=== PATIENT | female | born 1980 | race Caucasian/White ===

== ENCOUNTER → 2017-02-20 | Outpatient (CLI) | payer OTHER ==
[~2017-02-20] MED LIST: ALBUTEROL17 GM INH; ATIVAN PO; BIRTH CONTROL PILL PO; CYMBALTA PO; DEPAKOTE ER PO; DEPO-PROVER150 MG/M1 IM; DICLOFENAC PO; DOXYCYCLINE PO; FLEXERIL PO; FLEXERIL10 MG PO; K-DUR20 ME1 PO; MACROBID100 M1 PO; NO MEDICATIONS; PREDNISONE PO
--- NOTE | ~2017-02-20 | US77 ---
[facility] A Service of [facility] RADIOLOGY TEXT RESULTS PATIENT: STACI CERDA LOCATION: [facility] : 84 UNIT #: [id number] AGE: [address]: Nick Benton MD SEX: F ORDER DR: [id number] [facility]. [place], [place] [address] [id number] O MR#: [id number] Acc #: [id number] NAME: STACI CERDA. : 1980 SEX: F STUDY DATE/TIME: 02/20/2017 15:33 UNIT: [facility] ROOM: STUDY DESCRIPTION: US Kidney Bilateral Complete Attending Physician: Nick Benton M.D. Referring Physician: Nick Benton M.D. Ordering Physician: Nick Benton M.D. Primary Care Physician: John Tabor M.D. MEDICAL IMAGING REPORT This report is preliminary unless electronic signature is present EXAM Renal ultrasound INDICATIONS Renal calculus, patient underwent a lithotripsy [address] of the abdomen and pelvis performed November 06, 2013 did show bilateral renal calculi. TECHNIQUE Piña-scale and color Doppler sonographic images were obtained through the kidneys and bladder. FINDINGS Patient does have at least one renal stone identified within the inferior pole of the right kidney; however, there is no evidence of hydronephrosis and no solid or cystic renal masses are seen on either side. No definite stones are seen on the left. Patient's bladder appears unremarkable. IMPRESSION Nonobstructing stone identified within the inferior pole of the right kidney. No other abnormality identified. Dictated by... Mirela Asencio M.D. THIS IS AN ELECTRONICALLY VERIFIED REPORT Mirela Asencio M.D. at 02/21/2017 4:46 PM AFF/psc TD: 02/20/2017 22:17 JOB #: [id number] [facility] A Service [facility] RADIOLOGY TEXT RESULTS PATIENT: STACI CERDA LOCATION: [facility] #: [id number] : 84 UNIT #: [id number] AGE: [address]: Nick Benton MD SEX: F ORDER DR: MEDICAL IMAGING REPORT Page 1 of 1 COPY
== END | disposition home or self-care (01) ==
LOC: CGUS 14:48
DX: N20.0 Calculus of kidney (principal)
CPT/HCPCS: 76770

== ENCOUNTER 2017-03-01 11:03 | Emergency (ER) | payer OTHER ==
[~2017-03-01 11:03] MED LIST changes: -NO MEDICATIONS
[2017-03-01] MEDS ORDERED: NO MEDICATIONS (11:21)
== END 2017-03-01 11:37 | disposition home or self-care (01) ==
LOC: SED 11:03
DX: S30.860A Insect bite (nonvenomous) of lower back and pelvis, initial encounter (principal); F31.9 Bipolar disorder, unspecified; F17.210 Nicotine dependence, cigarettes, uncomplicated; Z88.0 Allergy status to penicillin; W57.XXXA Bitten or stung by nonvenomous insect and other nonvenomous arthropods, initial encounter
CPT/HCPCS: 99282